=== PATIENT | female | born 1945 | race Caucasian/White ===

== ENCOUNTER → 2016-10-29 | Outpatient (CLI) | payer OTHER ==
[~2016-10-29] MED LIST: ALENDRONATE SODIUM PO; ATOR40TA52 PO; Apixaban Base PO; CALC-6 OR; CYAN250L PO; FURO40TA4 PO; LISI10TA6 OR
[2016-10-29 10:42] LABS: Basophils # (auto) 0 uL; Basophils % (auto) 0.4 % (0.0-2.0); Eosinophils # (auto) 0.1 uL; Hematocrit 37.1 % (36.0-46.0); Hemoglobin 12.2 g/dL (12.2-16.2); Lymphocytes # (auto) 1.2 uL; Lymphocytes % (auto) 25.4 % (10.0-50.0); Mean Corpuscular Hemoglobin 27.5 pg (28.0-32.0); Mean Corpuscular Hgb Conc. 32.8 g/dL (32.0-36.0); Mean Corpuscular Volume 83.8 fL (80.0-100.0); Mean Platelet Volume 6.5 fL (7.4-10.4); Monocytes # (auto) 0.3 uL; Monocytes % (auto) 6.5 % (0.0-12.0); Neutrophils # (auto) 3.2 uL; Neutrophils % (auto) 65.7 % (37.0-80.0); Platelet Count (auto) 274 10^3/uL (140-450); White Blood Cell 4.8 10^3/uL (4.4-10.8)
[2016-10-29 11:27] LABS: Albumin 3.4 g/dL (3.4-5.0); BUN/Creatinine Ratio 28.4; Bilirubin, Total 0.4 mg/dL (0.2-1.0); Calcium 8.4 mg/dL (8.5-10.1); Total Protein 7.2 g/dL (6.4-8.2)
[2016-10-29 13:44] LABS: Urine Bilirubin Negative (Negative); Urine Blood Negative /uL (Negative); Urine Color Yellow (Yellow); Urine Glucose Normal (Normal); Urine Ketone Negative (Negative); Urine Mucus FEW (None Seen); Urine Nitrite Negative (Negative); Urine RBC 2 /hpf (0 - 4); Urine Squamous Epithelial Cell FEW /hpf (<5); Urine Urobilinogen Normal (Negative); Urine pH 5.5 (5.0-8.0)
== END | disposition home or self-care (01) ==
LOC: LAB 10:03
DX: Z12.11 Encounter for screening for malignant neoplasm of colon (principal); I10 Essential (primary) hypertension
CPT/HCPCS: 36415; 80053; 80061; 81001; 82270; 84443; 85025

== ENCOUNTER → 2016-11-12 | Outpatient (CLI) | payer OTHER | END | disposition home or self-care (01) | LOC: XY 09:49 | DX: I63.411 Cerebral infarction due to embolism of right middle cerebral artery (principal); I63.412 Cerebral infarction due to embolism of left middle cerebral artery; Z86.73 Personal history of transient ischemic attack (TIA), and cerebral infarction without residual deficits | CPT/HCPCS: 93886 ==

== ENCOUNTER → 2016-12-11 | Outpatient (CLI) | payer OTHER ==
[2016-12-11 11:55] LABS: Urine Bilirubin Negative (Negative); Urine Blood Negative /uL (Negative); Urine Color Yellow (Yellow); Urine Glucose Normal (Normal); Urine Ketone Negative (Negative); Urine Nitrite Negative (Negative); Urine RBC 5 /hpf (0 - 4); Urine Urobilinogen Normal (Negative)
[2016-12-11 11:56] LABS: Urine Squamous Epithelial Cell Moderate /hpf (<5)
== END | disposition home or self-care (01) ==
LOC: LAB 10:48
DX: N39.0 Urinary tract infection, site not specified (principal)
CPT/HCPCS: 81001

== ENCOUNTER → 2017-04-14 | Outpatient (CLI) | payer OTHER ==
[2017-04-14 10:33] LABS: Urine Bilirubin Negative (Negative); Urine Blood Negative /uL (Negative); Urine Color Yellow (Yellow); Urine Glucose Normal (Normal); Urine Ketone Negative (Negative); Urine Mucus FEW (None Seen); Urine Nitrite Negative (Negative); Urine RBC 2 /hpf (0 - 4); Urine Squamous Epithelial Cell MOD /hpf (<5); Urine Urobilinogen Normal (Negative)
[2017-04-14 10:42] LABS: Albumin 3.2 g/dL (3.4-5.0); BUN/Creatinine Ratio 21.6; Bilirubin, Total 0.5 mg/dL (0.2-1.0); Calcium 8.6 mg/dL (8.5-10.1); Potassium 3.8 mmol/L (3.5-5.1); Total Protein 6.8 g/dL (6.4-8.2)
[2017-04-14 10:45] LABS: Basophils # (auto) 0 uL; Basophils % (auto) 0.4 % (0.0-2.0); CONDITION Y; Eosinophils # (auto) 0.1 uL; Eosinophils % (auto) 1.8 % (0.0-7.0); Hematocrit 36.5 % (36.0-46.0); Hemoglobin 12.2 g/dL (12.2-16.2); Lymphocytes # (auto) 1.4 uL; Mean Corpuscular Hemoglobin 27.6 pg (28.0-32.0); Mean Corpuscular Hgb Conc. 33.4 g/dL (32.0-36.0); Mean Corpuscular Volume 82.7 fL (80.0-100.0); Mean Platelet Volume 6.8 fL (7.4-10.4); Monocytes # (auto) 0.4 uL; Monocytes % (auto) 6.6 % (0.0-12.0); Neutrophils # (auto) 3.7 uL; Neutrophils % (auto) 66.2 % (37.0-80.0); Platelet Count (auto) 258 10^3/uL (140-450); Red Cell Distribution Width 16.5 % (11.6-16.0); White Blood Cell 5.6 10^3/uL (4.4-10.8)
== END | disposition home or self-care (01) ==
LOC: LAB 08:49
PROVIDERS: ATTEND Internal Medicine
DX: I10 Essential (primary) hypertension (principal); Z12.11 Encounter for screening for malignant neoplasm of colon
CPT/HCPCS: 36415; 80053; 80061; 81001; 82270; 84443; 85025

== ENCOUNTER → 2017-04-28 | Outpatient (CLI) | payer OTHER ==
[2017-04-28 13:25] LABS: Urine Bilirubin Negative (Negative); Urine Blood Negative /uL (Negative); Urine Color Yellow (Yellow); Urine Glucose Normal (Normal); Urine Ketone Negative (Negative); Urine Mucus FEW (None Seen); Urine Nitrite Negative (Negative); Urine RBC 1 /hpf (0 - 4); Urine Squamous Epithelial Cell MOD /hpf (<5); Urine Urobilinogen Normal (Negative); Urine pH 5.5 (5.0-8.0)
== END | disposition home or self-care (01) ==
LOC: LAB 12:53
PROVIDERS: ATTEND Internal Medicine
DX: N39.0 Urinary tract infection, site not specified (principal)
CPT/HCPCS: 81001

== ENCOUNTER → 2019-05-18 | Outpatient (CLI) | payer OTHER ==
[2019-05-18 11:48] LABS: Basophils # (auto) 0 uL; Basophils % (auto) 0.6 % (0.0-2.0); Eosinophils # (auto) 0.1 uL; Eosinophils % (auto) 2.1 % (0.0-7.0); Hematocrit 39.8 % (36.0-46.0); Hemoglobin 13.4 g/dL (12.2-16.2); Lymphocytes # (auto) 1.4 uL; Mean Corpuscular Hemoglobin 29.1 pg (28.0-32.0); Mean Corpuscular Hgb Conc. 33.7 g/dL (32.0-36.0); Mean Corpuscular Volume 86.3 fL (80.0-100.0); Monocytes # (auto) 0.4 uL; Monocytes % (auto) 7.2 % (0.0-12.0); Neutrophils # (auto) 3.4 uL; Neutrophils % (auto) 64.1 % (37.0-80.0); Nucleated Red Blood Cells % 0.2 %; Platelet Count (auto) 205 10^3/uL (140-450); Red Blood Cells 4.62 10^6/uL (4.0-5.20); Red Cell Distribution Width 14.5 % (11.8-14.3); White Blood Cell 5.3 10^3/uL (4.4-10.8)
[2019-05-18 12:17] LABS: Albumin 3.4 g/dL (3.4-5.0); Calcium 8.6 mg/dL (8.5-10.1)
[2019-05-18 12:24] LABS: BUN/Creatinine Ratio 19.1; Bilirubin, Total 0.7 mg/dL (0.2-1.0); Total Protein 6.8 g/dL (6.4-8.2)
== END | disposition home or self-care (01) ==
LOC: LAB 10:55
PROVIDERS: ATTEND Physician Assistant
DX: E78.5 Hyperlipidemia, unspecified (principal); I12.9 Hypertensive chronic kidney disease with stage 1 through stage 4 chronic kidney disease, or unspecified chronic kidney disease; N18.3 Chronic kidney disease, stage 3 (moderate); I63.411 Cerebral infarction due to embolism of right middle cerebral artery; I67.9 Cerebrovascular disease, unspecified; Z86.711 Personal history of pulmonary embolism
CPT/HCPCS: 36415; 80053; 80061; 85025

== ENCOUNTER 2019-06-08 20:09 | Emergency (ER) | payer OTHER ==
[~2019-06-08] VITALS: Ht 162.6 cm; Wt 90.7 kg
[2019-06-08] MEDS ORDERED: GLUCAGON HYDROCHLORIDE (RDNA) 1 MG VIAL IV ONE (20:30)
[2019-06-08 20:43] LABS: Basophils # (auto) 0 uL; Basophils % (auto) 0.4 % (0.0-2.0); Eosinophils # (auto) 0.1 uL; Eosinophils % (auto) 1.9 % (0.0-7.0); Hematocrit 41.2 % (36.0-46.0); Hemoglobin 14.2 g/dL (12.2-16.2); Lymphocytes # (auto) 1.8 uL; Lymphocytes % (auto) 25.6 % (10.0-50.0); Mean Corpuscular Hemoglobin 29.8 pg (28.0-32.0); Mean Corpuscular Hgb Conc. 34.3 g/dL (32.0-36.0); Mean Corpuscular Volume 86.8 fL (80.0-100.0); Monocytes # (auto) 0.4 uL; Monocytes % (auto) 6.4 % (0.0-12.0); Neutrophils # (auto) 4.5 uL; Neutrophils % (auto) 65.7 % (37.0-80.0); Platelet Count (auto) 213 10^3/uL (140-450); Red Blood Cells 4.75 10^6/uL (4.0-5.20); Red Cell Distribution Width 14.5 % (11.8-14.3); White Blood Cell 6.9 10^3/uL (4.4-10.8)
[2019-06-08 21:00] LABS: Albumin 3.7 g/dL (3.4-5.0); Calcium 9.4 mg/dL (8.5-10.1); Potassium 3.4 mmol/L (3.5-5.1)
[2019-06-08 21:03] LABS: Bilirubin, Total 0.6 mg/dL (0.2-1.0); Total Protein 7.5 g/dL (6.4-8.2)
[2019-06-08] MEDS ORDERED: FLUMAZENIL 0.1 MG/ML INJ 10ML MDV IV ONE (22:10)
[2019-06-08] MEDS ORDERED: SODIUM CHLORIDE LOCK 10 ML ONE (22:10)
[2019-06-08] MEDS ORDERED: MIDAZOLAM HCL 5 MG/ML-1ML VIAL ONE (22:10)
[2019-06-08] MEDS ORDERED: NALOXONE HCL 0.4 MG/ML VIAL ONE (22:10)
[2019-06-08] MEDS ORDERED: fentaNYL CITRATE 100 MCG/2 ML VL ONE (22:11)
[2019-06-08] MEDS ORDERED: diphenhdrAMINE HCL 50 MG/1 ML VL ONE (22:11)
[2019-06-08 23:00] VITALS: BP 136/68
== END 2019-06-09 00:27 | disposition home or self-care (01) ==
LOC: ER 20:11
DX: T18.108A Unspecified foreign body in esophagus causing other injury, initial encounter (principal); E78.5 Hyperlipidemia, unspecified; I10 Essential (primary) hypertension; X58.XXXA Exposure to other specified factors, initial encounter; Y93.89 Activity, other specified; Y99.8 Other external cause status; Y92.89 Other specified places as the place of occurrence of the external cause
CPT/HCPCS: 36415; 43235; 80053; 85025; 94761; 96374; 99284; J1200; J1610; J2250; J3010

== ENCOUNTER → 2020-08-17 | Outpatient (CLI) | payer OTHER ==
[~2020-08-17] VITALS: Ht 162.6 cm; Wt 90.7 kg
[~2020-08-17] MED LIST changes: +ADENOSINE 76 MG in GIVE UN-DILUTED 0 ML IV STA; +LISI-648 OR; -LISI10TA6 OR
== END | disposition home or self-care (01) ==
LOC: XY 08:04
PROVIDERS: ATTEND Internal Medicine
DX: I25.10 Atherosclerotic heart disease of native coronary artery without angina pectoris (principal)
CPT/HCPCS: 78452; 93017; A9500; J0153

== ENCOUNTER → 2020-08-18 | Outpatient (CLI) | payer OTHER ==
[~2020-08-18] MED LIST changes: -ADENOSINE 76 MG in GIVE UN-DILUTED 0 ML IV STA
== END | disposition home or self-care (01) ==
LOC: XYW 07:40
PROVIDERS: ATTEND Internal Medicine
DX: I07.1 Rheumatic tricuspid insufficiency (principal); I31.3 Pericardial effusion (noninflammatory); I25.10 Atherosclerotic heart disease of native coronary artery without angina pectoris
CPT/HCPCS: 93306

== ENCOUNTER 2020-09-18 12:32 | Inpatient (IN) | payer OTHER ==
[~2020-09-18] VITALS: Ht 167.6 cm; Wt 99.0 kg
[~2020-09-18 12:32] MED LIST changes: -LISI-648 OR; +LISI-716 OR
[2020-09-18 20:24] VITALS: BP 147/73
[2020-09-18] MEDS ORDERED: MORPHINE SULFATE INJECTION 2 MG/ML SYRG IV PRN (22:30)
[2020-09-18] MEDS ORDERED: HYDROcodone-ACET 5/325MG TAB PO PRN (22:30)
[2020-09-18] MEDS ORDERED: NITROGLYCERIN 0.4 MG SL TAB SL PRN (22:30)
[2020-09-18] MEDS ORDERED: TEMAZEPAM 15 MG CAP PO ONE (22:30)
[2020-09-18] MEDS ORDERED: ACETAMINOPHEN 325 MG TAB PO PRN (22:30)
[2020-09-18] MEDS ORDERED: CARV3.1240 PO (22:56)
[2020-09-18] MEDS ORDERED: POTA10TA51 PO (22:56)
[2020-09-18] MEDS ORDERED: CLOP75TA70 PO (22:56)
[2020-09-18] MEDS ORDERED: AZITHROMYCIN 500MG/ 250ML 250 ML IV SCH (23:00)
[2020-09-18 23:18] LABS: Basophils # (auto) 0 10 ^3/uL (0-0.2); Basophils % (auto) 0.2 % (0.0-2.0); Eosinophils # (auto) 0 10 ^3/uL (0-0.8); Hematocrit 41.7 % (36.0-46.0); Hemoglobin 14.2 g/dL (12.2-16.2); Lymphocytes # (auto) 0.4 10 ^3/uL (0.4-5.4); Lymphocytes % (auto) 5.1 % (10.0-50.0); Mean Corpuscular Hemoglobin 29.5 pg (28.0-32.0); Mean Corpuscular Hgb Conc. 34.1 g/dL (32.0-36.0); Mean Corpuscular Volume 86.5 fL (80.0-100.0); Monocytes # (auto) 0.6 10 ^3/uL (0-1.3); Monocytes % (auto) 8.7 % (0.0-12.0); Neutrophils # (auto) 6.4 10 ^3/uL (1.6-8.6); Nucleated Red Blood Cells % 0.1 %; Red Blood Cells 4.82 10^6/uL (4.0-5.20); Red Cell Distribution Width 14.3 % (11.8-14.3); White Blood Cell 7.5 10^3/uL (4.4-10.8)
[2020-09-18 23:51] LABS: Albumin 3.2 g/dL (3.4-5.0); Calcium 8.4 mg/dL (8.5-10.1); Magnesium 2.2 mg/dL (1.6-2.6); Potassium 3.2 mmol/L (3.5-5.1)
[2020-09-18 23:59] LABS: Bilirubin, Total 0.8 mg/dL (0.2-1.0); CRP High Sensitivity 6.36 mg/dL (< 0.3); Total Protein 7.3 g/dL (6.4-8.2)
[2020-09-19] VITALS: BP 147/73
[2020-09-19 00:04] LABS: Urine Bacteria FEW /hpf (None Seen); Urine Blood Negative /uL (Negative); Urine Budding Yeast FEW /hpf (None Seen); Urine Hyaline Cast FEW /lpf (0 - 2); Urine Mucus FEW (None Seen); Urine Specific Gravity 1.017 (1.001-1.035); Urine WBC 28 /hpf (0 - 5)
[2020-09-19] MEDS: MORPHINE SULFATE 4 MG/ML SYR/VIAL IV PRN (05:31)
[2020-09-19 05:35] LABS: Basophils # (auto) 0 10 ^3/uL (0-0.2); Basophils % (auto) 0.1 % (0.0-2.0); Eosinophils # (auto) 0 10 ^3/uL (0-0.8); Eosinophils % (auto) 0.1 % (0.0-7.0); Hematocrit 44.7 % (36.0-46.0); Hemoglobin 14.6 g/dL (12.2-16.2); Lymphocytes # (auto) 0.6 10 ^3/uL (0.4-5.4); Lymphocytes % (auto) 8.2 % (10.0-50.0); Mean Corpuscular Hemoglobin 29.3 pg (28.0-32.0); Mean Corpuscular Hgb Conc. 32.6 g/dL (32.0-36.0); Mean Corpuscular Volume 89.8 fL (80.0-100.0); Monocytes # (auto) 0.9 10 ^3/uL (0-1.3); Monocytes % (auto) 12.4 % (0.0-12.0); Neutrophils % (auto) 79.2 % (37.0-80.0); Nucleated Red Blood Cells % 0.2 %; Red Blood Cells 4.98 10^6/uL (4.0-5.20); Red Cell Distribution Width 14.9 % (11.8-14.3); White Blood Cell 7.6 10^3/uL (4.4-10.8)
[2020-09-19] MEDS: DOXYCYCLINE 100MG/250ML 250 ML IV SCH ×2 (07:09→19:08)
[2020-09-19 08:00] VITALS: BP 123/61
[2020-09-19 09:22] LABS: Albumin 3.1 g/dL (3.4-5.0); Calcium 8.7 mg/dL (8.5-10.1); Potassium 3.2 mmol/L (3.5-5.1)
[2020-09-19 09:28] LABS: BUN/Creatinine Ratio 43.4; Bilirubin, Total 0.8 mg/dL (0.2-1.0); Total Protein 7.2 g/dL (6.4-8.2)
[2020-09-19] MEDS: cefTRIAXone 1GM/50ML D5W 50 ML IV SCH (09:39)
[2020-09-19] MEDS: CHOLECALCIFEROL (VITD3) 2,000 UNIT CAP/TAB PO SCH (09:42)
[2020-09-19] MEDS: ZINC SULFATE 220mg CAP or TAB PO SCH (09:47)
[2020-09-19] MEDS: CARVEDILOL 3.125 MG TAB PO SCH ×2 (09:48→23:46)
[2020-09-19] MEDS: ASCORBIC ACID 1,000 MG TAB PO SCH (09:48)
[2020-09-19] MEDS: ENOXAPARIN SOD 40 MG/0.4 ML SYRINGE SC SCH (09:49)
[2020-09-19] MEDS ORDERED: CLOPIDOGREL BISULFATE 75 MG TAB PO SCH (10:00)
[2020-09-19] MEDS: FAMOTIDINE 20 MG TAB PO SCH ×2 (11:34→23:46)
[2020-09-19] MEDS ORDERED: FOLI1TAB6 PO (12:52)
[2020-09-19] MEDS ORDERED: TURM500C3 PO (12:52)
[2020-09-19] MEDS ORDERED: CYAN1TAB11 PO (12:55)
[2020-09-19] MEDS ORDERED: CRAN125T PO (12:55)
[2020-09-19] MEDS ORDERED: MULT-1077 PO (12:55)
[2020-09-19] MEDS ORDERED: POTASSIUM CHL 20 Meq TABLET PO ONE (13:15)
[2020-09-19] MEDS ORDERED: TEMAZEPAM 15 MG CAP PO PRN (13:15)
[2020-09-19 16:00] VITALS: BP 135/50
[2020-09-19] MEDS: Ensure HIGH Protein Chocolate 8oz Bottle PO SCH (19:08)
[2020-09-19] MEDS: ATORVASTATIN 20 MG TAB PO SCH (23:46)
[2020-09-20] VITALS: BP 144/73
[2020-09-20 06:08] LABS: Basophils # (auto) 0 10 ^3/uL (0-0.2); Basophils % (auto) 0.2 % (0.0-2.0); Eosinophils # (auto) 0 10 ^3/uL (0-0.8); Eosinophils % (auto) 0.7 % (0.0-7.0); Hematocrit 39.1 % (36.0-46.0); Hemoglobin 13.2 g/dL (12.2-16.2); Lymphocytes # (auto) 0.8 10 ^3/uL (0.4-5.4); Lymphocytes % (auto) 16.6 % (10.0-50.0); Mean Corpuscular Hemoglobin 29.5 pg (28.0-32.0); Mean Corpuscular Hgb Conc. 33.7 g/dL (32.0-36.0); Mean Corpuscular Volume 87.5 fL (80.0-100.0); Monocytes # (auto) 0.6 10 ^3/uL (0-1.3); Monocytes % (auto) 12.3 % (0.0-12.0); Neutrophils # (auto) 3.3 10 ^3/uL (1.6-8.6); Neutrophils % (auto) 70.2 % (37.0-80.0); Red Blood Cells 4.47 10^6/uL (4.0-5.20); Red Cell Distribution Width 14.5 % (11.8-14.3); White Blood Cell 4.6 10^3/uL (4.4-10.8)
[2020-09-20 06:28] LABS: BUN/Creatinine Ratio 49.3; Calcium 8.1 mg/dL (8.5-10.1)
[2020-09-20] MEDS: DOXYCYCLINE 100MG/250ML 250 ML IV SCH ×2 (07:04→18:23)
[2020-09-20 08:00] VITALS: BP 131/72
[2020-09-20] MEDS: Ensure HIGH Protein Chocolate 8oz Bottle PO SCH ×3 (08:40→18:23)
[2020-09-20] MEDS: cefTRIAXone 1GM/50ML D5W 50 ML IV SCH (08:40)
[2020-09-20] MEDS: ZINC SULFATE 220mg CAP or TAB PO SCH (08:40)
[2020-09-20] MEDS: CARVEDILOL 3.125 MG TAB PO SCH ×2 (08:41→22:29)
[2020-09-20] MEDS: FAMOTIDINE 20 MG TAB PO SCH ×2 (08:41→22:29)
[2020-09-20] MEDS: ENOXAPARIN SOD 40 MG/0.4 ML SYRINGE SC SCH (08:42)
[2020-09-20] MEDS: CHOLECALCIFEROL (VITD3) 2,000 UNIT CAP/TAB PO SCH (08:42)
[2020-09-20] MEDS: ASCORBIC ACID 1,000 MG TAB PO SCH (08:42)
[2020-09-20] MEDS: MORPHINE SULFATE 4 MG/ML SYR/VIAL IV PRN ×2 (08:56→18:54)
[2020-09-20] MEDS ORDERED: POTASSIUM CHL 20 Meq TABLET PO ONE (12:30)
[2020-09-20 16:00] VITALS: BP 136/73
[2020-09-20] MEDS: ATORVASTATIN 20 MG TAB PO SCH (22:29)
[2020-09-21] VITALS: BP 124/56
[2020-09-21 06:20] LABS: Calcium 8.2 mg/dL (8.5-10.1); Potassium 3.7 mmol/L (3.5-5.1)
[2020-09-21 06:23] LABS: BUN/Creatinine Ratio 42.9
[2020-09-21] MEDS: DOXYCYCLINE 100MG/250ML 250 ML IV SCH (06:27)
[2020-09-21 08:00] VITALS: BP 163/71
[2020-09-21] MEDS: cefTRIAXone 1GM/50ML D5W 50 ML IV SCH (09:38)
[2020-09-21] MEDS: Ensure HIGH Protein Chocolate 8oz Bottle PO SCH ×3 (09:38→17:57)
[2020-09-21] MEDS: CARVEDILOL 3.125 MG TAB PO SCH ×2 (09:39→23:05)
[2020-09-21] MEDS: ASCORBIC ACID 1,000 MG TAB PO SCH (09:39)
[2020-09-21] MEDS: CHOLECALCIFEROL (VITD3) 2,000 UNIT CAP/TAB PO SCH (09:39)
[2020-09-21] MEDS: ZINC SULFATE 220mg CAP or TAB PO SCH (09:39)
[2020-09-21] MEDS: ONDANSETRON HCL 4 MG/2 ML VIAL IV PRN ×2 (09:43→15:33)
[2020-09-21] MEDS: MORPHINE SULFATE 4 MG/ML SYR/VIAL IV PRN ×3 (09:44→23:06)
[2020-09-21] MEDS: FAMOTIDINE 20 MG TAB PO SCH ×2 (10:00→23:06)
[2020-09-21] MEDS: ENOXAPARIN SOD 40 MG/0.4 ML SYRINGE SC SCH (10:11)
[2020-09-21 16:00] VITALS: BP 119/67
[2020-09-21] MEDS: ATORVASTATIN 20 MG TAB PO SCH (23:06)
[2020-09-22] VITALS: BP_SYST 137; BP_SYST 148; BP_DIAS 66; BP_DIAS 71
[2020-09-22] MEDS: MORPHINE SULFATE 4 MG/ML SYR/VIAL IV PRN ×2 (06:16→08:40)
[2020-09-22 06:24] LABS: Basophils # (auto) 0 10 ^3/uL (0-0.2); Basophils % (auto) 0.2 % (0.0-2.0); Eosinophils # (auto) 0.1 10 ^3/uL (0-0.8); Eosinophils % (auto) 1.4 % (0.0-7.0); Hematocrit 36.6 % (36.0-46.0); Hemoglobin 12.5 g/dL (12.2-16.2); Lymphocytes # (auto) 1.1 10 ^3/uL (0.4-5.4); Lymphocytes % (auto) 17.8 % (10.0-50.0); Mean Corpuscular Hemoglobin 29.3 pg (28.0-32.0); Mean Corpuscular Volume 86.3 fL (80.0-100.0); Monocytes # (auto) 0.7 10 ^3/uL (0-1.3); Monocytes % (auto) 11.3 % (0.0-12.0); Neutrophils # (auto) 4.1 10 ^3/uL (1.6-8.6); Neutrophils % (auto) 69.3 % (37.0-80.0); Nucleated Red Blood Cells % 0.1 %; Red Blood Cells 4.24 10^6/uL (4.0-5.20); Red Cell Distribution Width 14.2 % (11.8-14.3); White Blood Cell 5.9 10^3/uL (4.4-10.8)
[2020-09-22 06:37] LABS: Albumin 2.5 g/dL (3.4-5.0); Calcium 8.1 mg/dL (8.5-10.1); Potassium 3.7 mmol/L (3.5-5.1)
[2020-09-22 06:41] LABS: BUN/Creatinine Ratio 39.1; Bilirubin, Total 0.8 mg/dL (0.2-1.0); Total Protein 6.2 g/dL (6.4-8.2)
[2020-09-22 07:53] VITALS: BP 136/69
[2020-09-22] MEDS: Ensure HIGH Protein Chocolate 8oz Bottle PO SCH ×3 (08:22→22:53)
[2020-09-22] MEDS: cefTRIAXone 1GM/50ML D5W 50 ML IV SCH (08:37)
[2020-09-22] MEDS: CARVEDILOL 3.125 MG TAB PO SCH ×2 (08:38→22:52)
[2020-09-22] MEDS: ASCORBIC ACID 1,000 MG TAB PO SCH (08:38)
[2020-09-22] MEDS: CHOLECALCIFEROL (VITD3) 2,000 UNIT CAP/TAB PO SCH (08:39)
[2020-09-22] MEDS: ZINC SULFATE 220mg CAP or TAB PO SCH (08:39)
[2020-09-22] MEDS: FAMOTIDINE 20 MG TAB PO SCH ×2 (08:40→22:52)
[2020-09-22] MEDS: ENOXAPARIN SOD 40 MG/0.4 ML SYRINGE SC SCH (08:40)
[2020-09-22 16:00] VITALS: BP 133/68
[2020-09-22] MEDS: ATORVASTATIN 20 MG TAB PO SCH (22:52)
[2020-09-23] VITALS: BP 137/66
[2020-09-23] MEDS: ONDANSETRON HCL 4 MG/2 ML VIAL IV PRN (06:13)
[2020-09-23 08:00] VITALS: BP 137/37
[2020-09-23] MEDS: Ensure HIGH Protein Chocolate 8oz Bottle PO SCH ×3 (08:00→19:20)
[2020-09-23] MEDS: cefTRIAXone 1GM/50ML D5W 50 ML IV SCH (09:44)
[2020-09-23] MEDS: FAMOTIDINE 20 MG TAB PO SCH ×2 (09:44→22:15)
[2020-09-23] MEDS: ZINC SULFATE 220mg CAP or TAB PO SCH (09:44)
[2020-09-23] MEDS: ENOXAPARIN SOD 40 MG/0.4 ML SYRINGE SC SCH (09:45)
[2020-09-23] MEDS: ASCORBIC ACID 1,000 MG TAB PO SCH (09:45)
[2020-09-23] MEDS: CHOLECALCIFEROL (VITD3) 2,000 UNIT CAP/TAB PO SCH (09:45)
[2020-09-23] MEDS: CARVEDILOL 3.125 MG TAB PO SCH ×2 (09:47→22:15)
[2020-09-23] MEDS ORDERED: DOCUSATE SOD 100 MG CAP PO ONE (12:15)
[2020-09-23 16:00] VITALS: BP 163/85
[2020-09-23] MEDS: ATORVASTATIN 20 MG TAB PO SCH (22:15)
[2020-09-23] MEDS: DOCUSATE SOD 100 MG CAP PO SCH (22:15)
[2020-09-23] MEDS: MORPHINE SULFATE 4 MG/ML SYR/VIAL IV PRN (22:15)
[2020-09-23 23:48] VITALS: BP 143/63
[2020-09-24 08:00] VITALS: BP 138/76
[2020-09-24] MEDS: Ensure HIGH Protein Chocolate 8oz Bottle PO SCH ×3 (09:31→18:26)
[2020-09-24] MEDS: FAMOTIDINE 20 MG TAB PO SCH ×2 (09:32→21:37)
[2020-09-24] MEDS: DOCUSATE SOD 100 MG CAP PO SCH ×2 (09:32→21:36)
[2020-09-24] MEDS: ZINC SULFATE 220mg CAP or TAB PO SCH (09:32)
[2020-09-24] MEDS: cefTRIAXone 1GM/50ML D5W 50 ML IV SCH (09:32)
[2020-09-24] MEDS: ASCORBIC ACID 1,000 MG TAB PO SCH (09:32)
[2020-09-24] MEDS: ENOXAPARIN SOD 40 MG/0.4 ML SYRINGE SC SCH (09:33)
[2020-09-24] MEDS: CHOLECALCIFEROL (VITD3) 2,000 UNIT CAP/TAB PO SCH (09:33)
[2020-09-24] MEDS: CARVEDILOL 3.125 MG TAB PO SCH ×2 (09:36→21:36)
[2020-09-24] MEDS: ONDANSETRON HCL 4 MG/2 ML VIAL IV PRN (09:49)
[2020-09-24 16:00] VITALS: BP 124/60
[2020-09-24] MEDS: ALBUTEROL SULF HFA 90MCG INH 200DOSE IN PRN (19:26)
[2020-09-24] MEDS: MORPHINE SULFATE 4 MG/ML SYR/VIAL IV PRN (20:52)
[2020-09-24] MEDS: ATORVASTATIN 20 MG TAB PO SCH (21:36)
[2020-09-25] VITALS: BP 107/48
[2020-09-25 08:00] VITALS: BP 141/78
[2020-09-25] MEDS: Ensure HIGH Protein Chocolate 8oz Bottle PO SCH ×3 (08:00→18:00)
[2020-09-25] MEDS: ZINC SULFATE 220mg CAP or TAB PO SCH (09:27)
[2020-09-25] MEDS: DOCUSATE SOD 100 MG CAP PO SCH ×2 (09:27→22:09)
[2020-09-25] MEDS: cefTRIAXone 1GM/50ML D5W 50 ML IV SCH (09:27)
[2020-09-25] MEDS: ASCORBIC ACID 1,000 MG TAB PO SCH (09:29)
[2020-09-25] MEDS: CARVEDILOL 3.125 MG TAB PO SCH ×2 (09:29→22:10)
[2020-09-25] MEDS: CHOLECALCIFEROL (VITD3) 2,000 UNIT CAP/TAB PO SCH (09:29)
[2020-09-25] MEDS: FAMOTIDINE 20 MG TAB PO SCH ×2 (09:29→22:11)
[2020-09-25] MEDS: ENOXAPARIN SOD 40 MG/0.4 ML SYRINGE SC SCH (09:29)
[2020-09-25] MEDS: ONDANSETRON HCL 4 MG/2 ML VIAL IV PRN (11:12)
[2020-09-25 16:00] VITALS: BP 121/65
[2020-09-25] MEDS: ATORVASTATIN 20 MG TAB PO SCH (22:10)
[2020-09-25] MEDS: MORPHINE SULFATE 4 MG/ML SYR/VIAL IV PRN (22:11)
[2020-09-26] VITALS: BP 124/55
[2020-09-26 08:00] VITALS: BP 138/72
[2020-09-26] MEDS: Ensure HIGH Protein Chocolate 8oz Bottle PO SCH ×2 (09:11→12:48)
[2020-09-26] MEDS: cefTRIAXone 1GM/50ML D5W 50 ML IV SCH (09:12)
[2020-09-26] MEDS: FAMOTIDINE 20 MG TAB PO SCH (09:13)
[2020-09-26] MEDS: DOCUSATE SOD 100 MG CAP PO SCH (09:13)
[2020-09-26] MEDS: ASCORBIC ACID 1,000 MG TAB PO SCH (09:13)
[2020-09-26] MEDS: ZINC SULFATE 220mg CAP or TAB PO SCH (09:13)
[2020-09-26] MEDS: CHOLECALCIFEROL (VITD3) 2,000 UNIT CAP/TAB PO SCH (09:14)
[2020-09-26] MEDS: MORPHINE SULFATE 4 MG/ML SYR/VIAL IV PRN (09:15)
[2020-09-26] MEDS: CARVEDILOL 3.125 MG TAB PO SCH (09:21)
[2020-09-26] MEDS: ONDANSETRON HCL 4 MG/2 ML VIAL IV PRN (09:22)
[2020-09-26] MEDS: ENOXAPARIN SOD 40 MG/0.4 ML SYRINGE SC SCH (09:22)
[2020-09-26 13:51] VITALS: BP 138/72
[2020-09-26 16:08] VITALS: BP 104/53
[2020-09-26] MEDS: ALBUTEROL SULF HFA 90MCG INH 200DOSE IN PRN (19:11)
== END 2020-09-26 20:00 | DRG 177 ==
LOC: TELE-EAST 21:44
PROVIDERS: ADMIT Internal Medicine; ATTEND Internal Medicine
DX: U07.1 COVID-19 (principal); J12.82 Pneumonia due to coronavirus disease 2019; J96.90 Respiratory failure, unspecified, unspecified whether with hypoxia or hypercapnia; G92 Toxic encephalopathy; S32.592A Other specified fracture of left pubis, initial encounter for closed fracture; N39.0 Urinary tract infection, site not specified; G93.40 Encephalopathy, unspecified; J44.0 Chronic obstructive pulmonary disease with (acute) lower respiratory infection; I10 Essential (primary) hypertension; J44.9 Chronic obstructive pulmonary disease, unspecified; E78.5 Hyperlipidemia, unspecified; I70.0 Atherosclerosis of aorta; E87.6 Hypokalemia; Z96.642 Presence of left artificial hip joint; Z96.651 Presence of right artificial knee joint; E86.1 Hypovolemia; W01.0XXA Fall on same level from slipping, tripping and stumbling without subsequent striking against object, initial encounter; Y92.002 Bathroom of unspecified non-institutional (private) residence as the place of occurrence of the external cause; Y99.9 Unspecified external cause status; Z79.899 Other long term (current) drug therapy; Z79.891 Long term (current) use of opiate analgesic; Z79.01 Long term (current) use of anticoagulants; Z86.73 Personal history of transient ischemic attack (TIA), and cerebral infarction without residual deficits; Z82.49 Family history of ischemic heart disease and other diseases of the circulatory system; Z81.2 Family history of tobacco abuse and dependence
CPT/HCPCS: 36415; 71045; 72170; 80048; 80053; 81001; 82306; 82728; 83036; 83605; 83615; 83735; 84443; 84484; 85025; 85379; 86141; 87081; 87804; 93970; 94640; 97110; 97530; G0378; J0696; J2405; J3490